=== PATIENT | female | born 1970 ===

== ENCOUNTER 2020-04-16 10:32 | Outpatient (CLI) | payer OTHER | END 2020-04-16 16:27 | disposition home or self-care (01) | LOC: MRI 10:32 | PROVIDERS: ATTEND Orthopaedic Surgery | DX: M25.562 Pain in left knee (principal); M25.561 Pain in right knee | CPT/HCPCS: 73721 ==

== ENCOUNTER 2023-04-27 10:34 | Outpatient (CLI) | payer OTHER | END 2023-04-27 10:39 | disposition home or self-care (01) | LOC: RAD 10:34 | PROVIDERS: ATTEND Orthopaedic Surgery | DX: R07.9 Chest pain, unspecified (principal) ==

== ENCOUNTER 2024-07-25 08:55 | Outpatient (CLI) | payer OTHER | END 2024-07-25 09:01 | disposition home or self-care (01) | LOC: RAD 08:55 | PROVIDERS: ATTEND Orthopaedic Surgery | DX: M25.571 Pain in right ankle and joints of right foot (principal) ==